=== PATIENT | male | born 1960 | race Caucasian/White ===

== ENCOUNTER 2024-12-16 06:15 | Day surgery (SDC) | payer OTHER, SELFPAY | END 2024-12-16 11:50 | disposition home or self-care (01) | LOC: GI 06:15 | PROVIDERS: ATTENDING PHYSICIAN Specialist; FAMILY PHYSICIAN Family Medicine | DX: K22.70 Barrett's esophagus without dysplasia (principal); D13.0 Benign neoplasm of esophagus | CPT/HCPCS: 43239; 88305 ==